=== PATIENT | female | born 1955 | race Caucasian/White ===

== ENCOUNTER 2019-08-06 01:03 | Day surgery (SDC) | payer BC, SELFPAY ==
[2019-07-23 15:48] VITALS: BMI 25.4
--- NOTE | 2019-08-03 14:01 | WPDANESEPPF ---
Anes - Initial Pre Proc Eval Procedure: Operation Date: 08/06/19 07:30 Proposed Procedures p Hysteroscopy, Dilation and Curettage - Erika Cerrato MD Date/Time: 08/03/19 14:01 Surgeon: Erika Cerrato MD Pre Op Diagnosis: Postmenopausal Bleeding Patient Data Age: 64 Gender: F Height: 5 ft 5.5 in Weight: 70.45 kg Allergies Allergy/AdvReac Type Severity Reaction Status Date / Time No Known Allergies Allergy Unverified 07/23/19 15:26 Home Medications Medication Instructions Recorded Confirmed Type propranolol 20 mg PO HS 07/23/19 07/23/19 History rivaroxaban [Xarelto] 20 mg PO QPM 07/23/19 07/23/19 History venlafaxine 37.5 mg PO DAILY 07/23/19 07/23/19 History Patient hx anesthesia problems: other (takes a long time to awaken) Family hx anesthesia problems: none [facility] Past Medical History Medical History (Updated 08/03/19 @ 14:00 by Harish Agarwal MD) Anxiety 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 Questions were solicited and answers provided to the satisfaction of the patient/family/POA.
[2019-08-06 06:05] VITALS: BP 137/76; PULSE 63; RESP 17; TEMP 36.4; O2SAT 95; BMI 25.4
[2019-08-06] MEDS: LACTATED RINGERS 1,000 ML 30 ML IV CONT (06:40)
--- NOTE | 2019-08-06 07:22 | P.HP_ITS ---
History of Present Illness History of Present Illness Consent: Risks, benefits, and alternatives have been discussed and questions answered. Patient agrees to proceed with procedure. Chief complaint: Postmenopausal Bleeding Narrative: Tamy Lake is a 64 year old female with 3 months of postmenopausal bleeding on and off. Plan to evaluate with hysteroscopy and D&C. Risks of infection, bleeding, and perforation reviewed. Possible pathology discussed with patient. Agrees to proceed. 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 Status post hysteroscopy Surgical History Surgical History (Updated 08/06/19 @ 07:26 by Erika Cerrato MD) S/P laparoscopic procedure S/P tonsillectomy Meds Home Medications and Allergies Home Medications Medication Instructions Recorded Confirmed Type propranolol 20 mg PO HS 07/23/19 07/23/19 History rivaroxaban [Xarelto] 20 mg PO QPM 07/23/19 07/23/19 History venlafaxine 37.5 mg PO DAILY 07/23/19 07/23/19 History Allergies Allergy/AdvReac Type Severity Reaction Status Date / Time No Known Allergies Allergy Unverified 07/23/19 15:26 Vital Signs Vital Signs - 24 hr 08/06/19 06:05 Temperature 97.6 F Pulse Rate 63 Respiratory Rate 17 Blood Pressure 137/76 Pulse Oximetry 95 Exam Const: General: healthy appearing and alert Orientation/consciousness: patient oriented x3 Resp: Effort & Inspection: normal respiratory effort Auscultation: clear to auscultation bilaterally Cardio: Rate: regular rate Rhythm: regular rhythm GI: GI Palp: Yes Soft to palpation, No Tenderness to palpation present (GI) and No Palpable mass present : External Female Exam: normal external appearance Speculum Exam - Vagina: normal appearance of the vagina and normal vaginal discharge Speculum Exam - Cervix: normal appearance of the cervix Bimanual exam- vagina & uterus: uterine size normal and consistency normal Bimanual Exam- Adnexa, other: normal adnexae and No adnexal tenderness Neuro: General: patient oriented x3 Assessment and Plan Assessment and plan (1) Post-menopausal bleeding: Code(s): N95.0 - Postmenopausal bleeding Status: Acute Assessment and Plan: plan hysteroscopy with D&C
[2019-08-06] MEDS: KETOROLAC 30 MG/ML VIAL (*BKC) IV PUSH (07:53)
--- NOTE | 2019-08-06 07:57 | PM.OP ---
Procedure Note - Brief Procedure Note - Brief Date of procedure: 08/06/19 Pre-op diagnosis: Postmenopausal Bleeding Post-op diagnosis: same Description of procedure: hysteroscopy Anesthesia: MAC and local Surgeon: Erika Cerrato MD Estimated blood loss (mL): 5 Drains: No Packing: No Pathology: none sent Complications: Other complications (uterine perforation) Condition: stable Disposition: PACU Findings: atrophic endometrium with perforation at left fundus
[2019-08-06 08:00] VITALS: BP 101/66; PULSE 62; RESP 12; O2SAT 92
[2019-08-06 08:34] VITALS: BP 117/74; PULSE 67; RESP 12; O2SAT 95
[2019-08-06 09:00] VITALS: BP 124/75; PULSE 55; RESP 14
--- NOTE | 2019-08-06 15:37 | OP_ITS ---
DATE OF PROCEDURE: 08/06/2019 PREOPERATIVE DIAGNOSIS: Postmenopausal bleeding. POSTOPERATIVE DIAGNOSIS: Postmenopausal bleeding. PROCEDURE: Hysteroscopy. ANESTHESIA: MAC and local. FINDINGS: The cervix was stenotic. The uterus appears atrophic and sounds to 10 cm. ESTIMATED BLOOD LOSS: 5 cc. PATHOLOGY: None. DESCRIPTION OF PROCEDURE: The patient was taken to the operating room, placed under anesthesia, prepped and draped in the usual sterile fashion. A bivalve speculum was placed in the vagina. Cervix was grasped on the anterior lip of the tenaculum and injected with 1% lidocaine. Uterus was attempted to be sounded, but the internal os was stenotic. The os finders were used. The cervix was then serially dilated with Hegars. The uterus was sounded to 10 cm. The hysteroscope was placed and the endometrium appeared grossly atrophic. There was a small perforation noted at the left fundus. Therefore, a specimen was not taken. All instruments were removed. The patient was awakened from anesthesia, taken to recovery in stable condition. Constance I MT: [place]
== END 2019-08-06 09:23 | disposition home or self-care (01) ==
PROVIDERS: PCP Internal Medicine; Visit Provider Obstetrics & Gynecology Gynecology
PROC: 0U5B8ZZ Destruction of Endometrium, Via Natural or Artificial Opening Endoscopic (ICD-10-PCS; CPT 58563; principal; 2019-08-06 07:30)
DX: N95.0 Postmenopausal bleeding (principal); N88.2 Stricture and stenosis of cervix uteri; N99.71 Accidental puncture and laceration of a genitourinary system organ or structure during a genitourinary system procedure; F41.8 Other specified anxiety disorders; Z79.01 Long term (current) use of anticoagulants; Z86.718 Personal history of other venous thrombosis and embolism
CPT/HCPCS: 58555; A9270; J1885; J2250; J2704; J3010; J7030; J7120